=== PATIENT | male | born 1985 | race Caucasian/White ===

== ENCOUNTER 2020-12-12 11:13 | Emergency (ER) | payer SELFPAY ==
[~2020-12-12] VITALS: Ht 178 cm; Wt 88.0 kg
--- OUTSIDE RECORDS SUMMARY | 2020-12-12 11:23 | XMS REPORT | Clinical Summary ---
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
--- OUTSIDE RECORDS SUMMARY | 2020-12-12 11:23 | XMS REPORT | Clinical Summary ---
Author Author [facility] Health Organization [facility] Address Unknown Phone Unavailable Care Team Providers Care Can Operator Name Role Phone None, Pcp MD PCP Unavailable Source Comments [facility] (Labor and Delivery) documents do [facility] appear [facility] the [facility] Allergies No known active allergies Medications Please verify current medications with patient. No known medications Active Problems No known active problems Immunizations Name Administration Dates Next Due TDAP VACCINE =>8YO IM 06/01/2016 ADSORBED Social History Date Tobacco Use Types Packs/Day Years Used Current Every Day Smoker Cigarettes 1 Smokeless Tobacco: Current User Comments Alcohol Use Standard Drinks/Week No 0 (1 standard drink = 0.6 o z pure alcohol) Sex Assigned at Date Recorded Not on file Last Filed Vital Signs Reading Time Taken Comments Vital Sign 138/76 09/02/2017 4:02 PM CDT Blood Pressure 101 09/02/2017 4:02 PM CDT Pulse 36.9 C (98.5 F) 09/02/2017 4:02 PM CDT Temperature 20 06/01/2016 8:51 AM CDT Respiratory Rate 98% 09/02/2017 4:02 PM CDT Oxygen Saturation - - Inhaled Oxygen Concentration 83 kg (183 lb) 09/02/2017 4:02 PM CDT Weight 182.9 cm (6') 06/01/2016 6:05 AM CDT Height 24.82 06/01/2016 6:05 AM CDT Body Mass Index Plan of Treatment Health Maintenance Due Date Last Done Comments COVID-19 Vaccine (1) 1998 Influenza Vaccine (#1) 2020 HPV Vaccine Aged Out No longer eligible based on patient's age to complete this topic Pneumococcal Vaccine: Aged Out No longer eligib le based on patient's age to Pediatrics (0 to 5 Years) complete this topic and At-Risk Patients (6 to 64 Years) Results Not on filefrom Last 3 Months Insurance Type Payer Benefit Subscriber ID Effective Phone Address Plan / Dates Group WC WORKERS COMP OTHER WORKERS [id number] 2016- [phone] OTHER Present [id number] [address] [id number] Advance Directives Patient Senior Electrical Engineer Explanation Type Date Recorded CPR Directives Durable Medical POA Advanced Directives Living Will 09/02/2017 3:16 PM Living Will 06/01/2016 6:34 AM Care Teams Start Date End Date Can Operator Relationship Specialty 09/02/17 None, Pcp, MD PCP - General Other or Unknown Specialty
--- NOTE | 2020-12-12 11:27 | ED Psychosocial ---
General Chief Complaint: Overdose Stated Complaint: OVERDOSE Source: patient Exam Limitations: no limitations History of Present Illness Date Seen by Provider: Dec 12, 2020 Time Seen by Provider: 11:15 Initial Comments Patient to the ER by EMS from home with chief complaint that his neighbor witnessed him overdose on heroin. He states that she told him not to do that but he says he was trying to get high after doing some methamphetamines earlier this morning. He states he took 30 units and an insulin syringe IV and self administered at about 1 hour ago, 1030. He denies a history of heart disease or medical problems. He says his dad had heart disease. He is not having any pain, shortness of breath. He is having some nausea and received some Zofran on route from EMS. First responders noted him to be agonal breathing when they arrived and administered Narcan after which she sat up and started talking to them. He states he is not suicidal nor does he have any thoughts of self-harm. He was not trying to hurt himself or kill himself. Allergies and Home Medications Allergies Coded Allergies: No Known Drug Allergies (Unverified , 12/12/20) Patient Home Medication List Home Medication List Reviewed: Yes Review of Systems Constitutional: No chills, No diaphoresis EENTM: No ear discharge, No ear pain Respiratory: No cough, No short of breath Cardiovascular: No chest pain, No palpitations Gastrointestinal: No abdominal pain; nausea; No vomiting Genitourinary: No discharge, No dysuria Musculoskeletal: No back pain, No joint pain All Other Systems Reviewed Negative Unless Noted: Yes Past Qrqyuxz-Yiwxjc-Suhefr Hx Patient Social History Tobacco Use?: Yes Tobacco type used: Cigarettes Smoking Status: Current Everyday Smoker Substance use?: Yes Substance type: Methamphetamine, Opiates/Opioids (heroin) Substance frequency: Once in a while Alcohol Use?: Yes Alcohol type: Hard Liquor Alcohol Frequency: Daily Physical Exam Vital Signs - First Documented 12/12/20 11:15 Temp 36.0 Pulse 104 Resp 23 B/P (MAP) 146/89 (108) Pulse Ox 96 O2 Delivery Room Air Capillary Refill : Height, Weight, BMI Height: '" Weight: lbs. oz. kg; BMI Method: General Appearance: WD/WN, no apparent distress HEENT: PERRL/EOMI, normal ENT inspection, pharynx normal Neck: full range of motion, normal inspection Respiratory: lungs clear, normal breath sounds, no respiratory distress, no accessory muscle use Cardiovascular: normal peripheral pulses, regular rate, rhythm, no edema Peripheral Pulses: 2+ Dorsalis Pedis (R), 2+ Left Dors-Pedis (L) Gastrointestinal: non tender, soft Extremities: normal range of motion, normal inspection, normal capillary refill Neurologic/Psychiatric: favor maker II-XII nml as tested, no motor/sensory deficits, alert, normal mood/affect, oriented x 3 Appearance/Memory: appropriate appearance, appropriate insight Behavior/Eye Contact: cooperative, good eye contact, normal speech Thoughts/Hallucinations: normal thought pattern, no apparent hallucination, other (Denies suicidal or homicidal ideation) Skin: normal color, warm/dry Progress/Results/Core Measures Results/Orders Lab Results Laboratory Tests Test 12/12/20 11:20 12/12/20 13:48 12/12/20 14:41 Range/Units White Blood Count 12.5 H 4.3-11.0 10^3/uL Red Blood Count 5.66 H 4.30-5.52 10^6/uL Hemoglobin 17.2 13.3-17.7 g/dL Hematocrit 51 40-54 % Mean Corpuscular Volume 90 80-99 fL Mean Corpuscular Hemoglobin 30 25-34 pg Mean Corpuscular Hemoglobin Concent 34 32-36 g/dL Red Cell Distribution Width 12.3 10.0-14.5 % Platelet Count 416 H 130-400 10^3/uL Mean Platelet Volume 8.9 L 9.0-12.2 fL Immature Granulocyte % (Auto) 1 % Neutrophils (%) (Auto) 44 42-75 % Lymphocytes (%) (Auto) 44 12-44 % Monocytes (%) (Auto) 7 0-12 % Eosinophils (%) (Auto) 4 0-10 % Basophils (%) (Auto) 1 0-10 % Neutrophils # (Auto) 5.5 1.8-7.8 10^3/uL Lymphocytes # (Auto) 5.5 H 1.0-4.0 10^3/uL Monocytes # (Auto) 0.9 0.0-1.0 10^3/uL Eosinophils # (Auto) 0.5 H 0.0-0.3 10^3/uL Basophils # (Auto) 0.1 0.0-0.1 10^3/uL Immature Granulocyte # (Auto) 0.1 0.0-0.1 10^3/uL Sodium Level 141 135-145 MMOL/L Potassium Level 3.0 L 3.6-5.0 MMOL/L Chloride Level 107 98-107 MMOL/L Carbon Dioxide Level 19 L 21-32 MMOL/L Anion Gap 15 H 5-14 MMOL/L Blood Urea Nitrogen 8 7-18 MG/DL Creatinine 0.83 0.60-1.30 MG/DL Estimat Glomerular Filtration Rate 106 BUN/Creatinine Ratio 10 Glucose Level 168 H 70-105 MG/DL Calcium Level 8.5 8.5-10.1 MG/DL Corrected Calcium 8.4 L 8.5-10.1 MG/DL Total Bilirubin 0.5 0.1-1.0 MG/DL Aspartate Amino Transf (AST/SGOT) 20 5-34 U/L Alanine Aminotransferase (ALT/SGPT) 39 0-55 U/L Alkaline Phosphatase 85 40-136 U/L Total Creatine Kinase 48 30-200 U/L Troponin I < 0.028 < 0.028 <0.028 NG/ML Total Protein 6.9 6.4-8.2 GM/DL Albumin 4.1 3.2-4.5 GM/DL Salicylates Level < 5.0 L 5.0-20.0 MG/DL Acetaminophen Level < 10 L 10-30 UG/ML Serum Alcohol < 10 <10 MG/DL Urine Color YELLOW Urine Clarity CLEAR Urine pH 6.0 5-9 Urine Specific Nesbit >=1.030 1.016-1.022 Urine Protein 1+ H NEGATIVE Urine Glucose (UA) NEGATIVE NEGATIVE Urine Ketones NEGATIVE NEGATIVE Urine Nitrite NEGATIVE NEGATIVE Urine Bilirubin NEGATIVE NEGATIVE Urine Urobilinogen 0.2 < = 1.0 MG/DL Urine Leukocyte Esterase TRACE H NEGATIVE Urine RBC (Auto) NEGATIVE NEGATIVE Urine RBC NONE /HPF Urine WBC 10-25 H /HPF Urine Squamous Epithelial Cells NONE /HPF Urine Crystals NONE /LPF Urine Bacteria NEGATIVE /HPF Urine Casts NONE /LPF Urine Mucus NEGATIVE /LPF Urine Other MOD SPERM H /HPF Urine Culture Indicated YES Urine Opiates Screen NEGATIVE NEGATIVE Urine Oxycodone Screen NEGATIVE NEGATIVE Urine Methadone Screen NEGATIVE NEGATIVE Urine Propoxyphene Screen NEGATIVE NEGATIVE Urine Barbiturates Screen NEGATIVE NEGATIVE Ur Tricyclic Antidepressants Screen NEGATIVE NEGATIVE Urine Phencyclidine Screen NEGATIVE NEGATIVE Urine Amphetamines Screen POSITIVE H NEGATIVE Urine Methamphetamines Screen POSITIVE H NEGATIVE Urine Benzodiazepines Screen NEGATIVE NEGATIVE Urine Cocaine Screen NEGATIVE NEGATIVE Urine Cannabinoids Screen POSITIVE H NEGATIVE My Orders Orders - PADMANEETA Gomes Cbc With Automated Diff (12/12/20 11:24) Comprehensive Metabolic Panel (12/12/20 11:24) Creatine Kinase (12/12/20 11:24) Alcohol (12/12/20 11:24) Ua Culture If Indicated (12/12/20 11:24) Drug Screen Stat (Urine) (12/12/20 11:24) Continuous Ekg Monitoring (12/12/20 11:24) Ekg Tracing (12/12/20 11:24) Troponin I (12/12/20 11:24) Acetaminophen (12/12/20 11:24) Salicylate (12/12/20 11:24) Ondansetron Injection (Zofran Injectio (12/12/20 11:45) End Tidal Co2 (12/12/20 11:35) Ondansetron Injection (Zofran Injectio (12/12/20 11:35) Urine Culture (12/12/20 13:48) Troponin I (12/12/20 15:05) Medications Given in ED Current Medications Medications Dose Ordered Sig/Pina Route Start Time Stop Time Status Last Admin Dose Admin Ondansetron HCl 8 mg ONCE ONCE IVP 12/12/20 11:45 12/12/20 11:46 DC 12/12/20 11:37 8 MG Vital Signs/I&O 12/12/20 12/12/20 11:15 13:28 Temp 36.0 36.0 Pulse 104 89 Resp 23 20 B/P (MAP) 146/89 (108) 187/89 Pulse Ox 96 100 O2 Delivery Room Air Room Air Progress Progress Note : Time: 12:29 Progress Note Police report he was agonal breathing before they gave him Narcan. EMS reports they did not give him any Zofran so we gave him 8 mg of Zofran. Gave him a liter of fluids that was started by EMS. If his nausea resolves we will let him eat and drink. Initial troponin is negative. Plan to repeat a troponin at 230 which is greater than 4 hours after his initial incident. He is still asymptomatic. We have him on end-tidal CO2 35-40. Initial ECG Impression Date: Dec 12, 2020 Initial ECG Impression Time: 11:26 Initial ECG Rate: 95 Initial ECG Rhythm: Normal Sinus Initial ECG Intervals: Normal Initial ECG Impression: Normal Comment Normal sinus rhythm without clinically relevant ST changes Departure Impression Primary Impression: Accidental overdose Qualified Codes: T50.901A - Poisoning by unspecified drugs, medicaments and biological substances, accidental (unintentional), initial encounter Disposition: 01 HOME, SELF-CARE Condition: Stable Departure-Patient Inst. Decision time for Depature: 15:27 Referrals: [facility] Patient Instructions: ALCOHOL AND SUBSTANCE ABUSE, Opioid Overdose (DC), How to Give Naloxone Add. 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 If you would like some help quitting narcotics there are some specialty doctors at [facility] who are willing to help you. You should also consider contacting Narcotics Anonymous. [phone] ([phone]) All discharge instructions reviewed with patient and/or family. Voiced understanding. Scripts Naloxone HCl (Naloxone HCl) 0.4 Mg/1 Ml Syringe 0.4 MG IJ ONCE PRN for overdose, #1 EA 0 Refills Prov: NEETA ROUSE 12/12/20 NEETA ROUSE Dec 12, 2020 11:27
[2020-12-12 11:31] LABS: BASOPHILS # (AUTO) 0.1 10^3/uL (0.0-0.1); BASOPHILS % (AUTO) 1 % (0-10); EOSINOPHILS # (AUTO) 0.5 10^3/uL (0.0-0.3); EOSINOPHILS % (AUTO) 4 % (0-10); HEMATOCRIT 51 % (40-54); HEMOGLOBIN 17.2 g/dL (13.3-17.7); LYMPHOCYTES # (AUTO) 5.5 10^3/uL (1.0-4.0); LYMPHOCYTES % (AUTO) 44 % (12-44); MEAN CORPUSCULAR HEMOGLOBIN 30 pg (25-34); MEAN CORPUSCULAR HGB CONC 34 g/dL (32-36); MEAN CORPUSCULAR VOLUME 90 fL (80-99); MEAN PLATELET VOLUME 8.9 fL (9.0-12.2); MONOCYTES # (AUTO) 0.9 10^3/uL (0.0-1.0); MONOCYTES % (AUTO) 7 % (0-12); NEUTROPHILS # (AUTO) 5.5 10^3/uL (1.8-7.8); NEUTROPHILS % (AUTO) 44 % (42-75); PLATELET COUNT 416 10^3/uL (130-400); WHITE BLOOD COUNT 12.5 10^3/uL (4.3-11.0)
[2020-12-12] MEDS ORDERED: ONDANSETRON 4 MG/2 ML (SDV) Z0FRAN ONE (11:35)
[2020-12-12 11:41] LABS: ALBUMIN 4.1 GM/DL (3.2-4.5); CHLORIDE 107 MMOL/L (98-107); SODIUM 141 MMOL/L (135-145)
[2020-12-12 11:43] LABS: CALCIUM 8.5 MG/DL (8.5-10.1)
[2020-12-12 11:44] LABS: GLUCOSE 168 MG/DL (70-105); TOTAL PROTEIN 6.9 GM/DL (6.4-8.2)
[2020-12-12 11:45] LABS: CARBON DIOXIDE 19 MMOL/L (21-32)
[2020-12-12] MEDS ORDERED: ONDANSETRON 4 MG/2 ML (SDV) Z0FRAN IVP ONE (11:45)
[2020-12-12 11:46] LABS: BILIRUBIN,TOTAL 0.5 MG/DL (0.1-1.0)
[2020-12-12 11:48] LABS: ALKALINE PHOSPHATASE 85 U/L (40-136); CREATININE SERUM 0.83 MG/DL (0.60-1.30); GFR ESTIMATED 106
[2020-12-12 11:49] LABS: BUN/CREATININE RATIO 10
[2020-12-12 11:50] LABS: SALICYLATE < 5.0 MG/DL (5.0-20.0)
[2020-12-12 11:51] LABS: ALANINE AMINOTRANSFERASE 39 U/L (0-55); CREATINE KINASE 48 U/L (30-200)
[2020-12-12 12:04] LABS: ACETAMINOPHEN < 10 UG/ML (10-30)
[2020-12-12 13:55] LABS: BILIRUBIN,URINE NEGATIVE (NEGATIVE); CLARITY,URINE CLEAR; COLOR,URINE YELLOW; GLUCOSE, URINE (UA) NEGATIVE (NEGATIVE); KETONES,URINE NEGATIVE (NEGATIVE); LEUKOCYTE ESTERASE ,URINE TRACE (NEGATIVE); NITRITE,URINE NEGATIVE (NEGATIVE); PROTEIN,URINE 1+ (NEGATIVE)
[2020-12-12 14:03] LABS: BACTERIA,URINE NEGATIVE /HPF; URINE OTHER MOD SPERM /HPF
[2020-12-12 14:18] LABS: AMPHETAMINE SCREEN, URINE POSITIVE (NEGATIVE); BARBITURATE SCREEN URINE NEGATIVE (NEGATIVE); BENZODIAZEPINES SCREEN URINE NEGATIVE (NEGATIVE); CANNABINOID SCREEN, URINE POSITIVE (NEGATIVE); COCAINE SCREEN URINE NEGATIVE (NEGATIVE); METHADONE STAT NEGATIVE (NEGATIVE); METHAMPHETAMINE SCREEN URINE S POSITIVE (NEGATIVE); OPIATE SCREEN URINE NEGATIVE (NEGATIVE); OXYCODONE STAT NEGATIVE (NEGATIVE); PROPOXYPHENE STAT NEGATIVE (NEGATIVE); TRICYCLIC ANTIDEPRESSANTS SCRE NEGATIVE (NEGATIVE)
[2020-12-12] MEDS ORDERED: NALO0.4D3 IJ (15:36)
[2020-12-12 15:56] VITALS: BP 80/89
== END 2020-12-12 15:56 | disposition home or self-care (01) ==
LOC: ER 11:17
DX: T40.1X1A Poisoning by heroin, accidental (unintentional), initial encounter (principal); F17.210 Nicotine dependence, cigarettes, uncomplicated
CPT/HCPCS: 80053; 80306; 81000; 82550; 84484; 85025; 87088; 93005; 99284; G0480 ×3; 36415; 80320; 80329